=== PATIENT | male | born 1975 | race Two or more races ===

== ENCOUNTER 2018-02-16 09:59 | Outpatient (CLI) | payer OTHER ==
[~2018-02-16 09:59] MED LIST: DUI500 PO; HYDROXYCHLOROQ200 MG; IBUPROFEN800 MG PO; MUPIROCIN22 GM TOP; PROBIOTIC1 EAC1; TRAMADOL HCL50 MG PO
== END 2018-02-16 17:00 | disposition home or self-care (01) ==
LOC: TOM 09:59
DX: K57.32 Diverticulitis of large intestine without perforation or abscess without bleeding (principal); R10.32 Left lower quadrant pain

== ENCOUNTER 2018-02-18 08:38 | Inpatient (IN) | payer OTHER ==
[~2018-02-18] VITALS: Ht 175.3 cm; Wt 165.0 kg
[2018-02-18] MEDS ORDERED: MILLIPRED5 MG PO (08:51)
[2018-02-21] MEDS ORDERED: PANTOPRAZOLE SO40 MG PO (10:16)
[2018-02-21] MEDS ORDERED: CIPRO500 MG PO (10:16)
[2018-02-21] MEDS ORDERED: METRONIDAZOLE500 MG PO (10:16)
== END 2018-02-21 11:01 | DRG 391 ==
LOC: ER 08:38 → MEDI 17:34
PROC: BW21Y0Z Computerized Tomography (CT Scan) of Abdomen and Pelvis using Other Contrast, Unenhanced and Enhanced (ICD-10-PCS; principal; 2018-02-18)
DX: K57.32 Diverticulitis of large intestine without perforation or abscess without bleeding (principal); A41.9 Sepsis, unspecified organism; M06.89 Other specified rheumatoid arthritis, multiple sites

== ENCOUNTER 2018-05-29 06:16 | Day surgery (SDC) | payer OTHER ==
[~2018-05-29 06:16] MED LIST changes: +CIPRO500 MG PO; +METRONIDAZOLE500 MG PO; +MILLIPRED5 MG PO; +PANTOPRAZOLE SO40 MG PO
== END 2018-05-29 11:20 | disposition home or self-care (01) ==
LOC: AMB-ENDOS 06:16
DX: K57.32 Diverticulitis of large intestine without perforation or abscess without bleeding (principal); K64.1 Second degree hemorrhoids

== ENCOUNTER 2018-06-29 08:16 | Outpatient (CLI) | payer OTHER | END 2018-06-29 08:27 | disposition home or self-care (01) | LOC: RAD 501 08:16 | DX: K57.32 Diverticulitis of large intestine without perforation or abscess without bleeding (principal); K92.1 Melena ==

== ENCOUNTER 2018-07-01 12:48 | Inpatient (IN) | payer OTHER ==
[~2018-07-01] VITALS: Ht 172.7 cm; Wt 72.6 kg
[2018-07-01] MEDS ORDERED: DIALYVITE 800-1 EACH PO (13:27)
[2018-07-01] MEDS ORDERED: [UNRECOGNIZED DRUG - OTHER] PO (13:27)
== END 2018-07-10 18:17 | disposition home or self-care (01) | DRG 329 ==
LOC: SURH 07-07 06:00 → O/R 07-07 06:00 → SURG 07-07 07:00 → SURH 07-07 12:05 → SURG 07-07 14:15 → SURH 07-10 18:17
PROVIDERS: Colon & Rectal Surgery
PROC: 0WUF47Z Supplement Abdominal Wall with Autologous Tissue Substitute, Percutaneous Endoscopic Approach (ICD-10-PCS; 2018-07-07)
PROC: 0TQB4ZZ Repair Bladder, Percutaneous Endoscopic Approach (ICD-10-PCS; 2018-07-07)
PROC: 0DJD8ZZ Inspection of Lower Intestinal Tract, Via Natural or Artificial Opening Endoscopic (ICD-10-PCS; 2018-07-07)
PROC: 0DTN4ZZ Resection of Sigmoid Colon, Percutaneous Endoscopic Approach (ICD-10-PCS; principal; 2018-07-07 07:00)
DX: K57.20 Diverticulitis of large intestine with perforation and abscess without bleeding (principal); A41.9 Sepsis, unspecified organism; K63.2 Fistula of intestine; N99.72 Accidental puncture and laceration of a genitourinary system organ or structure during other procedure; M06.89 Other specified rheumatoid arthritis, multiple sites

== ENCOUNTER 2020-07-17 06:00 | Day surgery (SDC) | payer OTHER ==
[~2020-07-17 06:00] MED LIST changes: +DIALYVITE 800-1 EACH PO; +[UNRECOGNIZED DRUG - OTHER] PO
== END 2020-07-17 16:30 | disposition home or self-care (01) ==
LOC: AMB-ENDOS 06:00
PROVIDERS: ATTEND Colon & Rectal Surgery
DX: K29.50 Unspecified chronic gastritis without bleeding (principal); K62.89 Other specified diseases of anus and rectum; Z20.828 Contact with and (suspected) exposure to other viral communicable diseases; K44.9 Diaphragmatic hernia without obstruction or gangrene; K64.1 Second degree hemorrhoids

== ENCOUNTER 2022-08-18 11:03 | Emergency (ER) | payer OTHER ==
[~2022-08-18] VITALS: Ht 172.7 cm; Wt 84.8 kg
== END 2022-08-18 16:43 | disposition designated cancer center or children's hospital (05) ==
LOC: ER 11:03
DX: S12.121A Other nondisplaced dens fracture, initial encounter for closed fracture (principal); S02.19XA Other fracture of base of skull, initial encounter for closed fracture; S01.81XA Laceration without foreign body of other part of head, initial encounter; W86.1XXA Exposure to industrial wiring, appliances and electrical machinery, initial encounter; Y93.89 Activity, other specified; Y92.018 Other place in single-family (private) house as the place of occurrence of the external cause; Y99.9 Unspecified external cause status